=== PATIENT | female | born 1970 | race Caucasian/White ===

== ENCOUNTER 2024-08-08 15:16 | Emergency (ER) | payer BC, SELFPAY ==
[2024-08-08 15:17] VITALS: BP 155/99; PULSE 117; RESP 16; TEMP 36.8; O2SAT 97; BMI 37.1
--- NOTE | 2024-08-08 15:28 | ED_ITS ---
Discharge Plan Disposition Patient Disposition: Home, Self-Care Referrals Follow up/Referrals: Richard Urrutia MD [Physician] - See instructions Figueroa Lee [Primary Care Provider] - See instructions Activity Restrictions/Add. Instructions Additional Instructions/Restrictions: Please remove your nasal packing and 2 to 5 days as discussed return with any significant worsening of your bleeding. You may also follow-up with an ENT doctor as referred. Clinical Impressions Clinical Impression: Epistaxis Stand Alone Forms Stand Alone Forms: Work/School Release Instructions Patient Instructions: DI for Nosebleed Print Language Print Language: Italian Discharge ED Provider: Nelda Tovar General Adult HPI <NY Tenorio - Last Filed: 08/08/24 15:28> General Chief complaint: Epistaxis Stated complaint: Nose bleed Time Seen by Provider: 08/08/24 15:27 Mode of Arrival: Ambulatory Source of Information: Patient Limitations: No Limitations Description of Symptoms (Recalled from ER Triage Doc. by RN): pt presents to ED with c/o nose bleed. 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 pt reports that she blew her nose and began to have a nose bleed. pt reports that she took 81 mg baby aspirin this am for muscle soreness. no other blood thinners. Related Data Allergies Allergy/AdvReac Type Severity Reaction Status Date / Time No Known Allergies Allergy Verified 08/08/24 15:26 <Nelda Tovar MD - Last Filed: 08/08/24 17:14> History of Present Illness HPI narrative: Patient is a 54-year-old female who presents today with epistaxis. This began yesterday evening and spontaneously resolved and recurred again today. She is not on any anticoagulants she did take aspirin earlier in the day for muscle soreness which she states is secondary to significant increase in her activity over the last several days. She denies any ongoing chest pain shortness of breath does not want to be evaluated for that. No intervention was done prior to arrival. She has no other medical problems. PFSH <NY Tenorio - Last Filed: 08/08/24 15:28> [facility] Disclaimer: The information contained in this section may have been updated after the patient was seen, as this information can be updated by other users. Social History Smoking Status: Never smoker alcohol intake: never current occupational status: other Travel in the last 8 weeks: None <NY Tenorio - Last Filed: 08/08/24 15:28> ROS Obtained: Yes Systems reviewed as appropriate & no additional complaints except as documented Physical Exam <NY Tenorio - Last Filed: 08/08/24 15:28> General General appearance: alert and in no apparent distress Head Head exam: atraumatic and normal inspection Eye Eye exam: Present normal appearance, PERRL and EOMI ENT ENT exam: Present normal exam, normal oropharynx and mucous membranes moist Neck Neck exam: Present normal inspection, full ROM and trachea midline; Absent lymphadenopathy Chest Chest inspection: Present normal inspection and symmetric chest wall rise Respiratory Respiratory exam: Present normal lung sounds bilaterally; Absent accessory muscle use Cardiovascular Cardiovascular exam: Present regular rate, normal rhythm, normal heart sounds, +S1 and +S2 Abdominal Exam Abdominal exam: Present soft and normal bowel sounds; Absent tenderness, guarding or rebound Extremities Exam Extremities exam: Present normal inspection and full ROM Neurological Exam Neurological exam: Present alert, oriented X3 and CN II-XII intact Psychiatric Psychiatric exam: Present normal affect and normal mood Skin Skin exam: Present warm, dry and normal color Lymphatic Lymphatic Findings: no adenopathy <Nelda Tovar MD - Last Filed: 08/08/24 17:14> ENT ENT exam: Present other (Patient has bilateral epistaxis oxymetazoline and nasal clamp was already applied prior to my evaluation no significant posterior hemorrhage noted) Medical Decision Making <NY Tenorio - Last Filed: 08/08/24 15:28> Medical Records Screening: Per USPSTF and CDC recommendations, given the prevalence of disease in our region, it is our hospital?s policy to screen for HIV and viral Hepatitis for all patients aged 18 and over and those with ongoing risk factors. Vital Signs: 08/08/24 15:17 Temperature 98.2 F Temperature Source Oral Pulse Rate [Left Radial] 117 H Respiratory Rate 16 Blood Pressure [Right Arm] 155/99 H Blood Pressure Mean [Right Arm] 117 02 Sat by Pulse Oximetry 97 Oxygen Delivery Method Room Air Orders (Tests/Meds): ED MEDICATIONS Discontinued Medications Generic Name Dose Route Start Last Admin Trade Name Freq PRN Reason Stop Dose Admin Tranexamic Acid 1,000 mg 08/08/24 16:15 08/08/24 16:25 Tranexamic Acid 1,000 Mg/10 Ml Vial TP 08/08/24 16:16 1,000 mg ONCE ONE Administration Medical Decision Narrative: In summary patient is a [age, sex] who presents to the emergency department for evaluation of [complaint]. Patient is [hemodynamically stable/unstable] upon arrival, [febrile/afebrile]. [Unremarkable physical exam, nonfocal exam versus focal remarkable exam]. Differential diagnosis includes [DDx]. Initial workup will be conducted with [hematologic labs, imaging, respiratory swab, describe workup]. Initial interventions include [crystalloid bolus, medications, p.o. challenge, etc.] initial workup reviewed by me [hematologic labs are remarkable for... Imaging remarkable for... Urinalysis remarkable for]. Upon repeat evaluation [patient had acceptable resolution of symptoms, had persistent pain for which additional interventions were conducted (describe interventions), tolerated p.o., was ambulatory, etc.]. Given this [patient is appropriate for discharge at this time and will be discharged with a prescription for... The case was discussed with hospital medicine regarding management and they will admit the patient their service for continued evaluation at this time... Etc.] Places where you can increase complexity: I informally interpreted the patient's chest x-ray or CT read and is remarkable for... Documenting what the cardiac technologist shows with rate and rhythm Consideration of test but deferring. Ex: I considered chest x-ray on this patient however given that they have no oxygen requirement and are clear to auscultation all lung zamorano will be deferred. Social determinants of health: Given that patient is undomiciled increases complexity. Given that patient has polysubstance abuse compounds all aspects of care <Nelda Tovar MD - Last Filed: 08/08/24 17:14> Reyes Inquiry Pt receiving controlled substance: No Vital Signs: 08/08/24 15:17 Temperature 98.2 F Temperature Source Oral Pulse Rate [Left Radial] 117 H Respiratory Rate 16 Blood Pressure [Right Arm] 155/99 H Blood Pressure Mean [Right Arm] 117 02 Sat by Pulse Oximetry 97 Oxygen Delivery Method Room Air Orders (Tests/Meds): ED MEDICATIONS Discontinued Medications Generic Name Dose Route Start Last Admin Trade Name Freq PRN Reason Stop Dose Admin Tranexamic Acid 1,000 mg 08/08/24 16:15 08/08/24 16:25 Tranexamic Acid 1,000 Mg/10 Ml Vial TP 08/08/24 16:16 1,000 mg ONCE ONE Administration Medical Decision Narrative: 54-year-old with what appears to be an anterior epistaxis oxymetazoline and nasal clamp were already applied however the nasal clamp was not applying significant pressure therefore I changed the clamp to a tongue depressor apparatus that I created with tape. This was placed at 3:43 PM will allow this to have some time to see if this causes tamponade of the localized bleeding. Will reassess shortly. Reassessment 4 PM patient continuing to bleed I had to evacuate a clot in her nose after blowing her nose and I was able to see the area of bleeding on the right anterior mucosa of her nose this was cauterized using silver nitrate and then TXA soaked gauze were placed with pressure we will reassess in 10 to 15 minutes. Reassessment 4:25 PM patient continues to bleed TXA soaked gauze and pressure were taken out rapid Rhino was placed still continues to be in the right anterior region will reassess. Reassessment 5:14 PM patient has no longer had any bleeding rapid Rhino has worked well she does feel significant pressure with the inflation pressure but is stable. I discussed with her to have this removed in 2 to 5 days and to follow-up with the ENT or primary care doctor or to return to emergency room with any worsening bleeding. She was discharged in improved and stable condition. Procedures <Nelda Tovar MD - Last Filed: 08/08/24 17:14> Epistaxis Control Time Out Performed: Yes Nostril: right Direct Inspection: yes and anterior source identified Clots Removed by: blowing nose Cautery Used: silver nitrate Device Inserted: nasal tampon (Rapid Rhino placed) and other (TXA soaked gauze) Patient Tolerated Procedure: well Complications: continued epistaxis and pain Critical Care <Nelda Tovar MD - Last Filed: 08/08/24 17:14> Critical Care Time Critical Care Time: No
[2024-08-08] MEDS: TRANEXAMIC ACID 1,000 MG/10 ML VIAL 1000 MG TP (16:25)
[2024-08-08 17:16] VITALS: BP 150/90; PULSE 89; RESP 20; TEMP 36.8; O2SAT 98
== END 2024-08-08 17:17 | disposition home or self-care (01) ==
PROVIDERS: Emergency Provider Student in an Organized Health Care Education/Training Program; PCP Internal Medicine
DX: R04.0 Epistaxis (principal)
CPT/HCPCS: 99283